=== PATIENT | male | born 1990 | race African-American/Black ===

== ENCOUNTER 2017-02-04 02:18 | Emergency (ER) | payer OTHER ==
[~2017-02-04] VITALS: Ht 172.7 cm; Wt 72.1 kg
[2017-02-04] MEDS ORDERED: ALBUTEROL SULF8.5 GM INH ×2 (02:23→02:35)
[2017-02-04 02:25] VITALS: BP 112/74
[2017-02-04 02:48] VITALS: BP 112/74
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
== END 2017-02-04 03:00 | disposition home or self-care (01) ==
LOC: EMR 03:00
DX: M54.9 Dorsalgia, unspecified (principal); M25.532 Pain in left wrist; M25.531 Pain in right wrist; J45.909 Unspecified asthma, uncomplicated
CPT/HCPCS: 99283